=== PATIENT | male | born 1985 | race Caucasian/White ===

== ENCOUNTER → 2021-08-12 16:17 | Outpatient (REF) | payer OTHER, SELFPAY | LOC: ANHLAB 16:17 | PROVIDERS: PCP Internal Medicine; Visit Provider Nurse Practitioner | DX: D49.2 Neoplasm of unspecified behavior of bone, soft tissue, and skin (principal) | CPT/HCPCS: 88305 ==

== ENCOUNTER 2022-08-19 08:00 | Outpatient (NON) | payer OTHER, SELFPAY | END 2022-08-19 08:01 | disposition home or self-care (01) | LOC: ANHLAB 08-20 12:49 | PROVIDERS: PCP Internal Medicine; Visit Provider Nurse Practitioner | DX: D22.62 Melanocytic nevi of left upper limb, including shoulder (principal) | CPT/HCPCS: 88305 ==

== ENCOUNTER 2023-08-25 07:00 | Outpatient (NON) | payer OTHER, SELFPAY | END 2023-08-25 07:01 | disposition home or self-care (01) | LOC: ANHLAB 08-26 13:02 | PROVIDERS: PCP Internal Medicine; Visit Provider Nurse Practitioner | DX: D48.5 Neoplasm of uncertain behavior of skin (principal) | CPT/HCPCS: 88305 ==